=== PATIENT | male | born 1995 ===

== ENCOUNTER 2022-12-31 03:56 | Emergency (ER) | payer SELFPAY ==
[~2022-12-31] VITALS: Ht 190.5 cm; Wt 97.5 kg
[2022-12-31] MEDS ORDERED: LIDOCAINE HCL 1% 20 ML VIAL ONE (04:25)
[2022-12-31] MEDS ORDERED: LIDOCAINE HCL 1% 20 ML VIAL TP ONE (04:30)
[2022-12-31] MEDS ORDERED: DOXY100C5 PO (05:00)
[2022-12-31] MEDS ORDERED: DOXYCYCLINE HYCLATE 100 MG TABLET ONE (05:06)
[2022-12-31 05:09] VITALS: BP 117/72; TEMP 98; O2SAT 99
[2022-12-31] MEDS ORDERED: DOXYCYCLINE HYCLATE 100 MG TABLET PO ONE (05:15)
== END 2022-12-31 05:10 | disposition home or self-care (01) ==
LOC: ER 03:56
DX: S60.450A Superficial foreign body of right index finger, initial encounter (principal); Z88.1 Allergy status to other antibiotic agents; Z79.2 Long term (current) use of antibiotics; W45.8XXA Other foreign body or object entering through skin, initial encounter; Y93.89 Activity, other specified; Y92.89 Other specified places as the place of occurrence of the external cause; Y99.8 Other external cause status
CPT/HCPCS: 99284; J3490; A4663